=== PATIENT | male | born 1965 | race Caucasian/White ===

== ENCOUNTER 2020-10-14 18:53 | Inpatient (IN) | payer MEDICAID ==
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
[2020-10-14] MEDS ORDERED: SODIUM CHLORIDE 0.9% 1,000 ML IV STA ×2 (19:39→19:42)
[2020-10-14] MEDS ORDERED: ACETAMINOPHEN 325 MG TABLET PO STA (19:40)
[2020-10-14] MEDS ORDERED: KETOROLAC 15 MG/ML VIAL IVP STA (19:40)
[2020-10-14] MEDS ORDERED: HYDROmorphone 1 MG/ML CARPUJECT IVP STA (19:40)
[2020-10-14 19:51] LABS: BASOPHILS # (AUTO) 0.1 10^3/uL (0.0-0.1); BASOPHILS % (AUTO) 0.5 %; EOSINOPHILS % (AUTO) 0.2 %; HCT - HEMATOCRIT 40.6 % (42.0-52.0); HGB - HEMOGLOBIN 13.9 g/dL (14.0-18.0); LYMPHOCYTES % (AUTO) 10.6 %; MEAN CORPUSCULAR HEMOGLOBIN 31.7 pg (27.0-31.0); MEAN CORPUSCULAR HGB CONC 34.2 g/dL (32.0-36.0); MEAN CORPUSCULAR VOLUME 92.5 fL (80.0-94.0); MEAN PLATELET VOLUME 8.9 fL (7.4-11.4); MONOCYTES % (AUTO) 10.8 %; NEUTROPHILS # (AUTO) 14.1 10^3/uL (1.5-6.6); NEUTROPHILS % (AUTO) 76.2 %; PLT - PLATELET COUNT 310 10^3/uL (130-450); RED BLOOD COUNT 4.39 10^6/uL (4.70-6.10); RED CELL DISTRIBUTION WIDTH 11.8 % (12.0-15.0); WHITE BLOOD COUNT 18.5 x10^3/uL (4.8-10.8)
[2020-10-14 20:02] LABS: ALBUMIN 3.5 g/dL (3.2-5.5); ALBUMIN/GLOBULIN RATIO 0.9 (1.0-2.2); BILIRUBIN,TOTAL 0.6 mg/dL (0.2-1.0); CALCIUM 8.8 mg/dL (8.5-10.3); POTASSIUM 4.9 mmol/L (3.5-5.0); TOTAL PROTEIN 7.5 g/dL (6.7-8.2)
[2020-10-14] MEDS ORDERED: cefTRIAXone 1 GM VIAL IVP STA (20:37)
[2020-10-14] MEDS ORDERED: VANCOMYCIN INJ 1 GM in SODIUM CHLORIDE 0.9% 500 ML IV STA (20:37)
[2020-10-14 20:40] LABS: B. PARAPERTUSSIS- RESP PCR PAN NOT DETECTED; B. PERTUSSIS- RESP PCR PANEL NOT DETECTED; C. PNEUMONIAE- RESP PCR PANEL NOT DETECTED; CORONAVIRUS 229E-RESP PCR NOT DETECTED; CORONAVIRUS HKU1-RESP PCR NOT DETECTED; CORONAVIRUS NL63-RESP PCR NOT DETECTED; CORONAVIRUS OC43-RESP PCR NOT DETECTED; HUMAN METAPNEUMOVIRUS NOT DETECTED; INFLUENZA A- RESP PCR PANEL NOT DETECTED; INFLUENZA B - RESP PCR PANEL NOT DETECTED; M. PNEUMONIAE- RESP PCR PANEL NOT DETECTED; PARAINFLUENZA VIRUS 1 NOT DETECTED; PARAINFLUENZA VIRUS 2 NOT DETECTED; PARAINFLUENZA VIRUS 3 NOT DETECTED; PARAINFLUENZA VIRUS 4 NOT DETECTED; RHINOVIRUS/ENTEROVIRUS NOT DETECTED; RSV- RESP PCR PANEL NOT DETECTED; SARS-CoV-2 -RESP PCR PANEL NOT DETECTED
[2020-10-14] MEDS ORDERED: VANCOMYCIN 1 GM VIAL ONE (20:44)
[2020-10-14] MEDS ORDERED: IOPAMIDOL-300 100 ML VIAL ONE (20:57)
[2020-10-14] MEDS ORDERED: IOPAMIDOL-300 100 ML VIAL IVP ONE (21:42)
--- NOTE | 2020-10-14 21:50 | XRAY Report ---
PROCEDURE: Chest 1 View X-Ray INDICATIONS: chest pain TECHNIQUE: One view of the chest was acquired. COMPARISON: None FINDINGS: Surgical changes and devices: None. Lungs and pleura: No pleural effusions or pneumothorax. Lungs are clear. Mediastinum: Mediastinal contours appear normal. Heart size is normal. Bones and chest wall: No suspicious bony lesions. Overlying soft tissues appear unremarkable. IMPRESSION: No acute cardiopulmonary abnormality Findings concur with preliminary report. Reviewed by: Jack Turcios on 10/14/2020 9:49 PM PDT Approved by: Jack Turcios on 10/14/2020 9:49 PM PDT Station ID: [id number]
[2020-10-14] MEDS ORDERED: VANCOMYCIN INJ 1 GM in SODIUM CHLORIDE 0.9% 250 ML IV SCH (23:00)
[2020-10-14] MEDS ORDERED: ONDANSETRON 4 MG/2 ML VIAL IVP PRN (23:16)
[2020-10-14] MEDS ORDERED: SODIUM CHLORIDE FLUSH 0.9% 10 ML SYRINGE IVP PRN (23:16)
[2020-10-14] MEDS ORDERED: ONDANSETRON ODT 4 MG TABLET TL PRN (23:16)
[2020-10-14] MEDS ORDERED: HYDROmorphone 0.5 MG/0.5 ML SYRINGE IVP PRN (23:16)
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
[2020-10-14] MEDS ORDERED: SODIUM CHLORIDE 0.9% 1,000 ML IV SCH (23:45)
[2020-10-15] MEDS: ACETAMINOPHEN 325 MG TABLET PO PRN ×5 (00:32→23:59)
[2020-10-15] MEDS: oxyCODONE 5 MG TABLET PO PRN ×5 (00:32→23:54)
[2020-10-15] MEDS: AMPICILLIN/SULBACTAM 3 GM in SODIUM CHLORIDE 0.9% MINIBAG 100 ML IV SCH ×5 (00:33→23:40)
[2020-10-15] MEDS: SODIUM CHLORIDE FLUSH 0.9% 10 ML SYRINGE IVP SCH ×4 (00:34→23:40)
[2020-10-15 05:13] LABS: BASOPHILS % (AUTO) 0.5 %; EOSINOPHILS % (AUTO) 1.1 %; HCT - HEMATOCRIT 39.2 % (42.0-52.0); HGB - HEMOGLOBIN 13.5 g/dL (14.0-18.0); LYMPHOCYTES % (AUTO) 12.4 %; MEAN CORPUSCULAR HEMOGLOBIN 32.4 pg (27.0-31.0); MEAN CORPUSCULAR HGB CONC 34.4 g/dL (32.0-36.0); MEAN PLATELET VOLUME 9.1 fL (7.4-11.4); MONOCYTES % (AUTO) 10.6 %; NEUTROPHILS % (AUTO) 73.9 %; PLT - PLATELET COUNT 287 10^3/uL (130-450); RED BLOOD COUNT 4.17 10^6/uL (4.70-6.10); RED CELL DISTRIBUTION WIDTH 11.9 % (12.0-15.0); WHITE BLOOD COUNT 14.3 x10^3/uL (4.8-10.8)
[2020-10-15 05:16] LABS: ABNORMAL LYMPHS % (MANUAL) 0 %
[2020-10-15 05:31] LABS: BAND NEUTROPHILS % (MANUAL) 3 %; DIFFERENTIAL COMMENT MANUAL DIFFERENTIAL; EOSINOPHILS # (MANUAL) 0.7 10^3/uL (0-0.7); LYMPHOCYTES # (MANUAL) 0.9 10^3/uL (1.5-3.5); LYMPHOCYTES % (MANUAL) 6 %; MONOCYTES # (MANUAL) 1.6 10^3/uL (0.0-1.0); NEUTROPHILS # (MANUAL) 11.2 10^3/uL (1.5-6.6); PLATELET ESTIMATE, MANUAL NORMAL (130-450,000) (NORMAL); PLATELET MORPHOLOGY NORMAL APPEARANCE (NORMAL); RBC MORPHOLOGY (MULTIPLE) NORMAL APPEARANCE (NORMAL); WBC MORPHOLOGY (MULTIPLE) NORMAL APPEARANCE (NORMAL)
[2020-10-15 05:35] LABS: CALCIUM 8.5 mg/dL (8.5-10.3); CREATININE 0.9 mg/dL (0.6-1.2); CRP - C-REACTIVE PROTEIN 10.9 mg/dL (0-1.0); POTASSIUM 3.9 mmol/L (3.5-5.0)
[2020-10-15] MEDS: LEVOTHYROXINE 25 MCG TABLET PO SCH (07:44)
[2020-10-15] MEDS ORDERED: IOPAMIDOL-300 100 ML VIAL ONE (08:27)
[2020-10-15] MEDS: ENOXAPARIN 40 MG/0.4 ML SYRINGE SUBQ SCH (08:32)
--- NOTE | 2020-10-15 08:46 | CT Report ---
PROCEDURE: HEAD W INDICATIONS: Scalp wound, drainage, fever CONTRAST: IV CONTRAST: Isovue 300 ml: 100 PO CONTRAST: *NO PO CONTRAST TECHNIQUE: 4.5 mm thick angled axial sections acquired from the foramen magnum to the vertex after the administr ation of intravenous contrast. For radiation dose reduction, the following was used: automated expo sure control, adjustment of mA and/or kV according to patient size. COMPARISON: None FINDINGS: Image quality: Excellent. CSF Spaces: Basal cisterns are patent. No extra-axial fluid collections. Ventricles are normal in size and shape. Brain: No acute intracranial hemorrhage. Butler-white matter differentiation is maintained. No mass eff ect or midline shift. No abnormal intracranial enhancement. Skull and face: There is a subgaleal fluid and gas collection at the vertex just right of midline wit h associated skin clau. The collection measures approximately 1.5 cm in maximum thickness. Sinuses: Visualized sinuses and mastoids are clear. IMPRESSION: No acute intracranial abnormality or abnormal intracranial enhancement. Subgaleal fluid and gas collection near the vertex just right of midline posteriorly. This could repr esent liquefied hematoma or seroma. The collection is not organized or peripherally rim enhancing to suggest the presence of an abscess, although the collection could still be infected. Reviewed by: Berry Paul MD on 10/15/2020 8:45 AM PDT Approved by: Berry Paul MD on 10/15/2020 8:45 AM PDT Station ID: [id number]
--- NOTE | 2020-10-15 08:50 | CT Report ---
PROCEDURE: SOFT TISSUE NECK W INDICATIONS: scalp wound, fever, neck swelling CONTRAST: IV CONTRAST: Isovue 300 ml: 100 PO CONTRAST: *NO PO CONTRAST TECHNIQUE: After the administration of intravenous contrast, 3.0 mm axial sections acquired from the sella to th e aortic arch. Additional oblique axial 3.0 mm sections acquired through the pharynx. 3 mm thick co kishor reformats were generated. For radiation dose reduction, the following was used: automated exp osure control, adjustment of mA and/or kV according to patient size. COMPARISON: None. FINDINGS: These images demonstrate skin thickening and subcutaneous fat stranding in the left suprahyoid and in frahyoid neck. There is thickening of the left platysma indicative of myositis. No associated soft ti ssue fluid collection. Prominent bilateral palatine tonsils and adenoids. No tonsillar or peritonsillar abscess. No threshol d enlarged cervical or supraclavicular lymph node, although there is some mild reactive right cervica l lymphadenopathy. Unremarkable parotid, submandibular, and thyroid glands. Vascular structures of the neck enhance without obvious occlusion or flow limiting stenosis. No acute or suspicious osseous lesion. Degenerative changes in the cervical spine. Reversal of the ce rvical lordosis is likely positional. Included portions of the lung apices are clear. IMPRESSION: Cellulitis in the left suprahyoid and infrahyoid neck with associated left platysma myositis. Enlarged bilateral tonsils and adenoids potentially representing tonsillitis. No peritonsillar or ton sillar abscess. No soft tissue abscess. Reactive bilateral cervical lymphadenopathy, left greater than right. No significant change from pulmonary report. Reviewed by: Berry Paul MD on 10/15/2020 8:48 AM PDT Approved by: Berry Paul MD on 10/15/2020 8:48 AM PDT Station ID: [id number]
[2020-10-15] MEDS ORDERED: HYDROmorphone 1 MG/ML CARPUJECT IVP PRN (09:08)
--- NOTE | 2020-10-15 09:28 | PHARMACY PROGRESS NOTE ---
- Best Possible Medication History Admit Date and Time: 10/14/20 8423 Processed by: Nursing Medication History completed: Yes Patient Interview: Completed (MED REC COMPLETED BY NURSING.) As the person ultimately responsible for medication therapy, providers are able to order a medication from an existing home medication list in [facility] via the "Reconcile Routine" prior to Confirmation of that medication by client support analyst. Such practice is discouraged except when the physician, in their clinical judgment, deems that a medical need exists for a medication without regard to previous use.
[2020-10-15] MEDS ORDERED: LORazepam 2 MG/ML VIAL IVP STA (10:27)
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
[2020-10-15] MEDS: VANCOMYCIN INJ 1 GM, VANCOMYCIN INJ 500 MG in SODIUM CHLORIDE 0.9% 500 ML IV SCH (12:35)
--- NOTE | 2020-10-15 15:45 | PROVIDER PROGRESS NOTE ---
Subjective - Prog Note Date Prog Note Date: 10/15/20 Prog Note Time: 07:30 - Subjective Subjective: Patient was sleepy, lethargic. Head back, open mouth breathing when I woke him up. His scalp was encased in a dressing. Current Medications - Current Medications Current Medications: Active Medications Acetaminophen (Acetaminophen 325 Mg Tablet) 650 mg PO Q4HR PRN PRN Reason: Pain 1 to 4 Last Admin: 10/15/20 14:07 Dose: 650 mg Documented by: Enoxaparin Sodium (Enoxaparin 40 Mg/0.4 Ml Syringe) 40 mg SUBQ DAILY [facility] Last Admin: 10/15/20 08:32 Dose: 40 mg Documented by: Hydromorphone HCl (Hydromorphone 1 Mg/Ml Carpuject) 1 mg IVP Q2HR PRN PRN Reason: Pain 8 to 10 Ampicillin Sodium/Sulbactam (Sodium 3 gm/ Sodium Chloride) 100 mls @ 200 mls/hr IV Q6HR [facility] Last Infusion: 10/15/20 12:32 Dose: Infused Documented by: Vancomycin HCl 1 gm/Vancomycin HCl 500 mg/ Sodium Chloride 500 mls @ 250 mls/hr IV Q12H [facility] Last Infusion: 10/15/20 14:43 Dose: Infused Documented by: Levothyroxine Sodium (Levothyroxine 25 Mcg Tablet) 50 mcg PO QDAC [facility] Last Admin: 10/15/20 07:44 Dose: 50 mcg Documented by: Ondansetron HCl (Ondansetron Odt 4 Mg Tablet) 4 mg TL Q6HR PRN PRN Reason: Nausea / Vomiting Ondansetron HCl (Ondansetron 4 Mg/2 Ml Vial) 4 mg IVP Q6HR PRN PRN Reason: Nausea / Vomiting Oxycodone HCl (Oxycodone 5 Mg Tablet) 5 mg PO Q4HR PRN PRN Reason: Pain 5 to 7 Last Admin: 10/15/20 14:07 Dose: 5 mg Documented by: Sodium Chloride (Sodium Chloride Flush 0.9% 10 Ml Syringe) 10 ml IVP PRN PRN PRN Reason: NEEDED PER PROVIDER ORDERS Last Admin: 10/15/20 10:47 Dose: 10 ml Documented by: Sodium Chloride (Sodium Chloride Flush 0.9% 10 Ml Syringe) 10 ml IVP 0100,0900,1700 [facility] Last Admin: 10/15/20 08:33 Dose: 10 ml Documented by: No Known Home Medications 10/14/20 Objective - Vital Signs/Intake & Output Reviewed Vital Signs: Yes Vital Signs: Vital Signs x48h Temp Pulse Resp BP BP Pulse Ox 10/15/20 13:54 38.6 C H 86 20 129/57 L 100 10/15/20 07:56 37.2 C 90 20 135/75 H 97 Intake & Output: Intake & Output 10/12/20 10/13/20 10/14/20 10/15/20 23:59 23:59 23:59 23:59 Intake Total 2500 4010 Output Total 1400 Balance 2500 2610 - Objective General Appearance: positive: No acute distress, Lethargic, Other (Snoring, sleep, open mouth breather. No tachypnea. When I wake him up he says that his scalp just hurts.) Eyes Bilateral: positive: PERRL, EOMI ENT: positive: Dry mucous membranes Neck: positive: No JVD, Lymphadenopathy (R), Lymphadenopathy (L), Stiff neck (Mouth breathing it hurts to turn his head to the right and left. Both platysma and paracervical neck muscles ache he tells me. It is not the worst headache he is ever had.) Respiratory: positive: No respiratory distress. negative: Wheezes, Rales Cardiovascular: positive: Regular rate & rhythm, No murmur. negative: Gallop/S4, Friction rub Abdomen: positive: Non-tender, No organomegaly, Nml bowel sounds, No distention Skin: positive: Warm, Diaphoresis Extremities: positive: Full ROM, No pedal edema Neurologic/Psychiatric: positive: Oriented x3, CN's nml (2-12), Motor nml - Lab Results Fish Bones: 10/15/20 04:54 10/15/20 04:54 Other Labs: Lab Results x24hrs 10/15/20 10/15/20 10/15/20 Range/Units 04:54 04:54 04:54 WBC (4.8-10.8) x10^3/uL RBC (4.70-6.10) 10^6/uL Hgb (14.0-18.0) g/dL Hct (42.0-52.0) % MCV (80.0-94.0) fL MCH (27.0-31.0) pg MCHC (32.0-36.0) g/dL RDW (12.0-15.0) % Plt Count (130-450) 10^3/uL MPV (7.4-11.4) fL Neut # (Auto) (1.5-6.6) 10^3/uL Lymph # (Auto) (1.5-3.5) 10^3/uL [place] # (Auto) (0.0-1.0) 10^3/uL Eos # (Auto) (0.0-0.7) 10^3/uL Baso # (Auto) (0.0-0.1) 10^3/uL Absolute Nucleated RBC x10^3/uL Total Counted Band Neuts % (Manual) (0 - 10) % Abnorm Lymph % (Manual) % Nucleated RBC % /100WBC Neutrophils # (Manual) (1.5-6.6) 10^3/uL Lymphocytes # (Manual) (1.5-3.5) 10^3/uL Monocytes # (Manual) (0.0-1.0) 10^3/uL Eosinophils # (Manual) (0-0.7) 10^3/uL Basophils # (Manual) (0-0.1) 10^3/uL Differential Comment WBC Morphology (NORMAL) Platelet Estimate (NORMAL) Platelet Morphology (NORMAL) RBC Morph Micro Appear (NORMAL) Sodium 137 (135-145) mmol/L Potassium 3.9 (3.5-5.0) mmol/L Chloride 100 L (101-111) mmol/L Carbon Dioxide 28 (21-32) mmol/L Anion Gap 9.0 (6-13) BUN 15 (6-20) mg/dL Creatinine 0.9 (0.6-1.2) mg/dL Estimated GFR (MDRD) 88 L (>89) Glucose 119 H (70-100) mg/dL Lactic Acid (0.5-2.2) mmol/L Calcium 8.5 (8.5-10.3) mg/dL Magnesium 2.0 (1.7-2.8) mg/dL Total Bilirubin (0.2-1.0) mg/dL AST (10-42) IU/L ALT (10-60) IU/L Alkaline Phosphatase (42-121) IU/L C-Reactive Protein 10.9 H (0-1.0) mg/dL Total Protein (6.7-8.2) g/dL Albumin (3.2-5.5) g/dL Globulin (2.1-4.2) g/dL Albumin/Globulin Ratio (1.0-2.2) Lipase (22-51) U/L TSH 8.06 H (0.34-5.60) uIU/mL Free T4 1.08 (0.58-1.64) ng/dL Nasal Adenovirus (PCR) Nasal B. parapertussis DNA (PCR) Nasal Coronavir 229E PCR Nasal Coronavir HKU1 PCR Nasal Coronavir NL63 PCR Nasal Coronavir OC43 PCR Nasal Enterovir/Rhinovir PCR Nasal Influenza B PCR Nasal Influenza A PCR Nasal Parainfluen 1 PCR Nasal Parainfluen 2 PCR Nasal Parainfluen 3 PCR Nasal Parainfluen 4 PCR Nasal RSV (PCR) Nasal B.pertussis DNA PCR Nasal C.pneumoniae (PCR) Jj Human Metapneumo PCR Nasal M.pneumoniae (PCR) Nasal SARS-CoV-2 (PCR) 10/15/20 10/14/20 10/14/20 Range/Units 04:54 19:34 19:30 WBC 14.3 H (4.8-10.8) x10^3/uL RBC 4.17 L (4.70-6.10) 10^6/uL Hgb 13.5 L (14.0-18.0) g/dL Hct 39.2 L (42.0-52.0) % MCV 94.0 (80.0-94.0) fL MCH 32.4 H (27.0-31.0) pg MCHC 34.4 (32.0-36.0) g/dL RDW 11.9 L (12.0-15.0) % Plt Count 287 (130-450) 10^3/uL MPV 9.1 (7.4-11.4) fL Neut # (Auto) Not Reportable (1.5-6.6) 10^3/uL Lymph # (Auto) Not Reportable (1.5-3.5) 10^3/uL [place] # (Auto) Not Reportable (0.0-1.0) 10^3/uL Eos # (Auto) Not Reportable (0.0-0.7) 10^3/uL Baso # (Auto) Not Reportable (0.0-0.1) 10^3/uL Absolute Nucleated RBC Not Reportable x10^3/uL Total Counted 100 Band Neuts % (Manual) 3 (0 - 10) % Abnorm Lymph % (Manual) 0 % Nucleated RBC % Not Reportable /100WBC Neutrophils # (Manual) 11.2 H (1.5-6.6) 10^3/uL Lymphocytes # (Manual) 0.9 L (1.5-3.5) 10^3/uL Monocytes # (Manual) 1.6 H (0.0-1.0) 10^3/uL Eosinophils # (Manual) 0.7 (0-0.7) 10^3/uL Basophils # (Manual) 0.0 (0-0.1) 10^3/uL Differential Comment MANUAL DIFFERENTIAL WBC Morphology NORMAL APPEARANCE (NORMAL) Platelet Estimate NORMAL (130-450,000) (NORMAL) Platelet Morphology NORMAL APPEARANCE (NORMAL) RBC Morph Micro Appear NORMAL APPEARANCE (NORMAL) Sodium (135-145) mmol/L Potassium (3.5-5.0) mmol/L Chloride (101-111) mmol/L Carbon Dioxide (21-32) mmol/L Anion Gap (6-13) BUN (6-20) mg/dL Creatinine (0.6-1.2) mg/dL Estimated GFR (MDRD) (>89) Glucose (70-100) mg/dL Lactic Acid (0.5-2.2) mmol/L Calcium (8.5-10.3) mg/dL Magnesium (1.7-2.8) mg/dL Total Bilirubin (0.2-1.0) mg/dL AST (10-42) IU/L ALT (10-60) IU/L Alkaline Phosphatase (42-121) IU/L C-Reactive Protein 10.6 H (0-1.0) mg/dL Total Protein (6.7-8.2) g/dL Albumin (3.2-5.5) g/dL Globulin (2.1-4.2) g/dL Albumin/Globulin Ratio (1.0-2.2) Lipase (22-51) U/L TSH (0.34-5.60) uIU/mL Free T4 (0.58-1.64) ng/dL Nasal Adenovirus (PCR) NOT DETECTED Nasal B. parapertussis DNA (PCR) NOT DETECTED Nasal Coronavir 229E PCR NOT DETECTED Nasal Coronavir HKU1 PCR NOT DETECTED Nasal Coronavir NL63 PCR NOT DETECTED Nasal Coronavir OC43 PCR NOT DETECTED Nasal Enterovir/Rhinovir PCR NOT DETECTED Nasal Influenza B PCR NOT DETECTED Nasal Influenza A PCR NOT DETECTED Nasal Parainfluen 1 PCR NOT DETECTED Nasal Parainfluen 2 PCR NOT DETECTED Nasal Parainfluen 3 PCR NOT DETECTED Nasal Parainfluen 4 PCR NOT DETECTED Nasal RSV (PCR) NOT DETECTED Nasal B.pertussis DNA PCR NOT DETECTED Nasal C.pneumoniae (PCR) NOT DETECTED Jj Human Metapneumo PCR NOT DETECTED Nasal M.pneumoniae (PCR) NOT DETECTED Nasal SARS-CoV-2 (PCR) NOT DETECTED 10/14/20 10/14/20 10/14/20 Range/Units 19:30 19:30 19:30 WBC 18.5 H (4.8-10.8) x10^3/uL RBC 4.39 L (4.70-6.10) 10^6/uL Hgb 13.9 L (14.0-18.0) g/dL Hct 40.6 L (42.0-52.0) % MCV 92.5 (80.0-94.0) fL MCH 31.7 H (27.0-31.0) pg MCHC 34.2 (32.0-36.0) g/dL RDW 11.8 L (12.0-15.0) % Plt Count 310 (130-450) 10^3/uL MPV 8.9 (7.4-11.4) fL Neut # (Auto) 14.1 H (1.5-6.6) 10^3/uL Lymph # (Auto) 2.0 (1.5-3.5) 10^3/uL [place] # (Auto) 2.0 H (0.0-1.0) 10^3/uL Eos # (Auto) 0.0 (0.0-0.7) 10^3/uL Baso # (Auto) 0.1 (0.0-0.1) 10^3/uL Absolute Nucleated RBC 0.00 x10^3/uL Total Counted Band Neuts % (Manual) (0 - 10) % Abnorm Lymph % (Manual) % Nucleated RBC % 0.0 /100WBC Neutrophils # (Manual) (1.5-6.6) 10^3/uL Lymphocytes # (Manual) (1.5-3.5) 10^3/uL Monocytes # (Manual) (0.0-1.0) 10^3/uL Eosinophils # (Manual) (0-0.7) 10^3/uL Basophils # (Manual) (0-0.1) 10^3/uL Differential Comment WBC Morphology (NORMAL) Platelet Estimate (NORMAL) Platelet Morphology (NORMAL) RBC Morph Micro Appear (NORMAL) Sodium 129 L (135-145) mmol/L Potassium 4.9 (3.5-5.0) mmol/L Chloride 92 L (101-111) mmol/L Carbon Dioxide 27 (21-32) mmol/L Anion Gap 10.0 (6-13) BUN 16 (6-20) mg/dL Creatinine 1.0 (0.6-1.2) mg/dL Estimated GFR (MDRD) 78 L (>89) Glucose 128 H (70-100) mg/dL Lactic Acid 1.2 (0.5-2.2) mmol/L Calcium 8.8 (8.5-10.3) mg/dL Magnesium (1.7-2.8) mg/dL Total Bilirubin 0.6 (0.2-1.0) mg/dL AST 23 (10-42) IU/L ALT 33 (10-60) IU/L Alkaline Phosphatase 74 (42-121) IU/L C-Reactive Protein (0-1.0) mg/dL Total Protein 7.5 (6.7-8.2) g/dL Albumin 3.5 (3.2-5.5) g/dL Globulin 4.0 (2.1-4.2) g/dL Albumin/Globulin Ratio 0.9 L (1.0-2.2) Lipase 20 L (22-51) U/L TSH (0.34-5.60) uIU/mL Free T4 (0.58-1.64) ng/dL Nasal Adenovirus (PCR) Nasal B. parapertussis DNA (PCR) Nasal Coronavir 229E PCR Nasal Coronavir HKU1 PCR Nasal Coronavir NL63 PCR Nasal Coronavir OC43 PCR Nasal Enterovir/Rhinovir PCR Nasal Influenza B PCR Nasal Influenza A PCR Nasal Parainfluen 1 PCR Nasal Parainfluen 2 PCR Nasal Parainfluen 3 PCR Nasal Parainfluen 4 PCR Nasal RSV (PCR) Nasal B.pertussis DNA PCR Nasal C.pneumoniae (PCR) Jj Human Metapneumo PCR Nasal M.pneumoniae (PCR) Nasal SARS-CoV-2 (PCR) ABX Reporting Has patient been on IV antibiotics over the past 48 hours?: Yes Sepsis Event Note (H) - Evaluation Current Stage of Sepsis: Sepsis Possible source of Sepsis: positive: Skin/soft tissue - Sepsis Criteria Sepsis Criteria: Recorded Temperature greater than 38.3C or Less than 36C, Recorded Heart Rate greater than 90 bpm, WBC count greater than 12,000 or less than 4000 Assessment/Plan - Problem List (1) Sepsis Impression: He presents with a fever, tachycardia, leukocytosis with a left shift. Fortunately he is normotensive with a normal lactic acid. Respiratory PCR panel is unremarkable. Chest x-ray is also unremarkable. He has no urinary symptoms to suggest a urinary infection. On physical examination the source of his sepsis is the scalp cellulitis that extends down into his neck. We are suspicious about the fluid collection underneath the scalp, and the possible myositis on CT of the neck. start him empirically on vancomycin and Unasyn. He is on empiric vancomycin and Unasyn, day #2. White cell count on admission was 18.5 and he is 14.3. Preliminary wound culture is gram-positive cocci in chains. On exam he still quite diaphoretic. A little bit sleepy. Still febrile this morning at 38.1. Tachycardia has improved. Continue to trend white cell count I am asking oral maxillofacial surgery to take a look at this patient and make sure he does not need any draining of fluid or debridement of tissue (2) Wound infection, posttraumatic Conclusion/Plan: The scalp wound does appear infected and this is after the trauma he had about 1 week ago. The wound has purulent drainage with surrounding cellulitis. CT of the head showed a subgaleal fluid and gas collection in the vertex. I suspect that the gas collection is likely due to the trauma and the opening rather than a gas-forming organism. Wound cultures were obtained in the emergency department. Plan: Treatment as above in problem #1 (3) Cellulitis of multiple sites of scalp and neck Conclusion/Plan: He has cellulitis of the scalp as well as in the neck. CT of the neck confirms cellulitis and there was also evidence of mild platysma thickening suggestive of myositis. There was no obvious abscess or fluid collection. Given the potential concern for pyomyositis, I went ahead and consulted oral maxillofacial surgery today. C-reactive protein was 10.6 on admission and 10.9 this morning. (4) Periorbital edema of left eye Conclusion/Plan: He does have periorbital edema of the left eye but there is no evidence of proptosis and he has no pain with movement. There is no obvious erythema although this edema could still be due to cellulitis. At this point time, there is low suspicion for orbital cellulitis. He will be on antibiotics nonetheless given the cellulitis of the scalp and left neck. (5) Hyponatremia, resolved Conclusion/Plan: Suspect is likely hypovolemic hyponatremia. His sodium is decreased at 129. With hydration his sodium has improved to 137. (6) Hypothyroidism Conclusion/Plan: He reports a history of hypothyroidism and that he is supposed to be on levothyroxine 50 mcg but he has not taken this for a few months. TSH is 8.06. We have resumed his 50 mcg. Should get a recheck in 4 weeks.
[2020-10-16] MEDS: VANCOMYCIN INJ 1 GM, VANCOMYCIN INJ 500 MG in SODIUM CHLORIDE 0.9% 500 ML IV SCH ×3 (00:15→23:48)
[2020-10-16] MEDS: SODIUM CHLORIDE FLUSH 0.9% 10 ML SYRINGE IVP SCH ×4 (00:15→23:48)
[2020-10-16 05:26] LABS: BASOPHILS # (AUTO) 0.1 10^3/uL (0.0-0.1); BASOPHILS % (AUTO) 0.7 %; EOSINOPHILS # (AUTO) 0.3 10^3/uL (0.0-0.7); EOSINOPHILS % (AUTO) 2.5 %; HCT - HEMATOCRIT 39.2 % (42.0-52.0); LYMPHOCYTES # (AUTO) 2.1 10^3/uL (1.5-3.5); LYMPHOCYTES % (AUTO) 17.8 %; MEAN CORPUSCULAR HEMOGLOBIN 31.5 pg (27.0-31.0); MEAN CORPUSCULAR HGB CONC 33.2 g/dL (32.0-36.0); MEAN CORPUSCULAR VOLUME 94.9 fL (80.0-94.0); MEAN PLATELET VOLUME 8.9 fL (7.4-11.4); MONOCYTES # (AUTO) 1.2 10^3/uL (0.0-1.0); MONOCYTES % (AUTO) 10.2 %; NEUTROPHILS # (AUTO) 7.7 10^3/uL (1.5-6.6); NEUTROPHILS % (AUTO) 66.4 %; PLT - PLATELET COUNT 295 10^3/uL (130-450); RED BLOOD COUNT 4.13 10^6/uL (4.70-6.10); RED CELL DISTRIBUTION WIDTH 12.1 % (12.0-15.0); WHITE BLOOD COUNT 11.6 x10^3/uL (4.8-10.8)
[2020-10-16 05:46] LABS: CALCIUM 8.8 mg/dL (8.5-10.3); CREATININE 0.8 mg/dL (0.6-1.2); CRP - C-REACTIVE PROTEIN 8.6 mg/dL (0-1.0); POTASSIUM 4.2 mmol/L (3.5-5.0)
[2020-10-16] MEDS: AMPICILLIN/SULBACTAM 3 GM in SODIUM CHLORIDE 0.9% MINIBAG 100 ML IV SCH ×2 (05:58→11:28)
[2020-10-16] MEDS: LEVOTHYROXINE 25 MCG TABLET PO SCH (06:14)
[2020-10-16] MEDS: ACETAMINOPHEN 325 MG TABLET PO PRN ×2 (06:14→11:50)
[2020-10-16] MEDS: ENOXAPARIN 40 MG/0.4 ML SYRINGE SUBQ SCH (09:20)
[2020-10-16] MEDS ORDERED: KETOROLAC 30 MG/ML VIAL IVP PRN (11:40)
--- NOTE | 2020-10-16 11:43 | PROVIDER PROGRESS NOTE ---
Subjective - Prog Note Date Prog Note Date: 10/16/20 Prog Note Time: 11:51 - Subjective Subjective: Feels so much better. The pain that was going down his neck into the platysma on both sides is almost gone. It still comes and goes. The main pain he is feeling is on top of the head where the scalp incision was. It is pounding. He is on Dilaudid and oxycodone but asked that we remove it from the MAR. He had had some spine surgery in the past. 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 He has not had any of it for a while. Probably since 2013. Current Medications - Current Medications Current Medications: Active Medications Acetaminophen (Acetaminophen 325 Mg Tablet) 650 mg PO Q4HR PRN PRN Reason: Pain 1 to 4 Last Admin: 10/16/20 11:50 Dose: 650 mg Documented by: Enoxaparin Sodium (Enoxaparin 40 Mg/0.4 Ml Syringe) 40 mg SUBQ DAILY [facility] Last Admin: 10/16/20 09:20 Dose: 40 mg Documented by: Vancomycin HCl 1 gm/Vancomycin HCl 500 mg/ Sodium Chloride 500 mls @ 250 mls/hr IV Q12H [facility] Last Infusion: 10/16/20 02:15 Dose: Infused Documented by: Ketorolac Tromethamine (Ketorolac 30 Mg/Ml Vial) 30 mg IVP Q6HR PRN PRN Reason: PAIN Stop: 10/21/20 11:39 Last Admin: 10/16/20 11:50 Dose: 30 mg Documented by: Levothyroxine Sodium (Levothyroxine 25 Mcg Tablet) 50 mcg PO QDAC [facility] Last Admin: 10/16/20 06:14 Dose: 50 mcg Documented by: Ondansetron HCl (Ondansetron Odt 4 Mg Tablet) 4 mg TL Q6HR PRN PRN Reason: Nausea / Vomiting Ondansetron HCl (Ondansetron 4 Mg/2 Ml Vial) 4 mg IVP Q6HR PRN PRN Reason: Nausea / Vomiting Sodium Chloride (Sodium Chloride Flush 0.9% 10 Ml Syringe) 10 ml IVP PRN PRN PRN Reason: NEEDED PER PROVIDER ORDERS Last Admin: 10/15/20 10:47 Dose: 10 ml Documented by: Sodium Chloride (Sodium Chloride Flush 0.9% 10 Ml Syringe) 10 ml IVP 0100,0900,1700 [facility] Last Admin: 10/16/20 11:29 Dose: 10 ml Documented by: No Known Home Medications 10/14/20 Objective - Vital Signs/Intake & Output Reviewed Vital Signs: Yes Vital Signs: Vital Signs x48h Temp Pulse Resp BP Pulse Ox 10/16/20 11:32 36.6 C 76 18 134/79 H 100 10/16/20 08:30 36.5 C 70 18 132/58 H 100 10/16/20 05:00 37.3 C 73 16 134/81 H 100 Intake & Output: Intake & Output 10/13/20 10/14/20 10/15/20 10/16/20 23:59 23:59 23:59 23:59 Intake Total 2500 5590 2780 Output Total 2700 2700 Balance 2500 2890 80 - Objective General Appearance: positive: No acute distress, Alert, Other (Yesterday he was still mainly asleep, and today he is cheerful, alert. Only complaint is the throbbing headache.) Eyes Bilateral: positive: PERRL, EOMI ENT: positive: No signs of dehydration Neck: positive: No JVD, Trachea midline, Lymphadenopathy (L) (Still has some slight lymphadenopathy on the left in comparison to yesterday. The right lymphadenopathy is almost disappeared.). negative: Stiff neck Respiratory: positive: No respiratory distress. negative: Wheezes, Rales, Rhonchi Cardiovascular: positive: Regular rate & rhythm. negative: Gallop/S4, Friction rub Abdomen: positive: Non-tender, No organomegaly, Nml bowel sounds, No distention Skin: positive: Warm, Dry, Other (Diaphoresis from yesterday has resolved. Periorbital swelling on the left side is gone. The edema that was going down his face past his jawline has resolved as well.) Extremities: positive: Non-tender, Full ROM, Nml appearance, No pedal edema Neurologic/Psychiatric: positive: Oriented x3, CN's nml (2-12), Motor nml - Lab Results Fish Bones: 10/16/20 05:05 10/16/20 05:05 Other Labs: Lab Results x24hrs 10/16/20 10/16/20 Range/Units 05:05 05:05 WBC 11.6 H (4.8-10.8) x10^3/uL RBC 4.13 L (4.70-6.10) 10^6/uL Hgb 13.0 L (14.0-18.0) g/dL Hct 39.2 L (42.0-52.0) % MCV 94.9 H (80.0-94.0) fL MCH 31.5 H (27.0-31.0) pg MCHC 33.2 (32.0-36.0) g/dL RDW 12.1 (12.0-15.0) % Plt Count 295 (130-450) 10^3/uL MPV 8.9 (7.4-11.4) fL Neut # (Auto) 7.7 H (1.5-6.6) 10^3/uL Lymph # (Auto) 2.1 (1.5-3.5) 10^3/uL [place] # (Auto) 1.2 H (0.0-1.0) 10^3/uL Eos # (Auto) 0.3 (0.0-0.7) 10^3/uL Baso # (Auto) 0.1 (0.0-0.1) 10^3/uL Absolute Nucleated RBC 0.00 x10^3/uL Nucleated RBC % 0.0 /100WBC Sodium 141 (135-145) mmol/L Potassium 4.2 (3.5-5.0) mmol/L Chloride 103 (101-111) mmol/L Carbon Dioxide 27 (21-32) mmol/L Anion Gap 11.0 (6-13) BUN 12 (6-20) mg/dL Creatinine 0.8 (0.6-1.2) mg/dL Estimated GFR (MDRD) 101 (>89) Glucose 113 H (70-100) mg/dL Calcium 8.8 (8.5-10.3) mg/dL Magnesium 2.0 (1.7-2.8) mg/dL C-Reactive Protein 8.6 H (0-1.0) mg/dL ABX Reporting Has patient been on IV antibiotics over the past 48 hours?: Yes Sepsis Event Note (H) - Evaluation Current Stage of Sepsis: Sepsis Possible source of Sepsis: positive: Skin/soft tissue - Sepsis Criteria Sepsis Criteria: Recorded Temperature greater than 38.3C or Less than 36C, Recorded Heart Rate greater than 90 bpm, WBC count greater than 12,000 or less than 4000 Assessment/Plan - Problem List (1) Sepsis Impression: Resolved. He presented with a fever, tachycardia, leukocytosis with a left shift. Fortunately he was normotensive with a normal lactic acid. Respiratory PCR panel was unremarkable. Chest x-ray was also unremarkable. He had no urinary symptoms to suggest a urinary infection. On physical examination the source of his sepsis was the scalp cellulitis that extends down into his neck. We were suspicious about the fluid collection underneath the scalp, and the possible myositis on CT of the neck. started him empirically on vancomycin and Unasyn. He is on empiric vancomycin and Unasyn, day #3. White cell count on admission was 18.5 >> 14.3 >> 11.6 today. Blood cultures have no growth after 1 day. I consulted with oral maxillofacial surgery to address the wound. Suture/clau were removed. The pus accumulation was drained. Wound culture is staph aureus and beta-hemolytic group strep A. Sensitivities on the Staph are pending. His last temperature spike was at 4:00 in the afternoon October 15. No fever since then. Diaphoresis has resolved. Much more clear headed and responsive. On examination the swelling that was in the periorbital area down to his jawline and neck has completely resolved. Continue to trend white cell count. Once I get the sensitivities to the staph aureus I can switch him to Rocephin or keep him on vancomycin. We will stop the Unasyn now. (2) Wound infection, posttraumatic, improving Conclusion/Plan: The scalp wound appeared infected on admission. There was purulent drainage with surrounding cellulitis. CT of the head showed subgaleal fluid and gas collection in the vertex that we suspected the air to be from trauma and the opening rather than gas-forming organisms. However the cellulitis did wrap around forward in the scalp toward his face and involve the lateral periorbital area down his face into his neck. All of the face and neck swelling has resolved and the only area of induration now is on his scalp. Treatment as above in problem #1 (3) Cellulitis of multiple sites of scalp and neck, improving Conclusion/Plan: He has cellulitis of the scalp as well as in the neck. CT of the neck confirms cellulitis and there was also evidence of mild platysma thickening suggestive of myositis. There was no obvious abscess or fluid collection. Given the potential concern for pyomyositis, I went ahead and consulted oral maxillofacial surgery 10/15 and he was seen. I appreciate the consult and the patient has improved quite a bit. C-reactive protein was 10.6 >> 10.9>>8.6 this morning. (4) Periorbital edema of left eye resolved Conclusion/Plan: He did have periorbital edema of the left eye but there was no evidence of proptosis and he had no pain with movement. There was no obvious erythema although this edema could still be due to cellulitis. There was low suspicion for orbital cellulitis. He will be on antibiotics nonetheless given the cellulitis of the scalp and left neck. (5) Hyponatremia, resolved Conclusion/Plan: Suspect is likely hypovolemic hyponatremia. His sodium is decreased at 129. With hydration his sodium has improved to 137. (6) Hypothyroidism Conclusion/Plan: He reports a history of hypothyroidism and that he is supposed to be on levothyroxine 50 mcg but he has not taken this for a few months. TSH is 8.06. We have resumed his 50 mcg. Should get a recheck in 4 weeks. (7) pain. I really appreciated his sharing of complicated opioid history use. I will stop the Dilaudid and oxycodone and switch him to Toradol.
[2020-10-16] MEDS: KETOROLAC 30 MG/ML VIAL IVP PRN (21:46)
[2020-10-17] MEDS: ACETAMINOPHEN 325 MG TABLET PO PRN ×2 (00:34→09:26)
[2020-10-17] MEDS: LEVOTHYROXINE 25 MCG TABLET PO SCH (05:59)
[2020-10-17] MEDS: KETOROLAC 30 MG/ML VIAL IVP PRN (06:00)
[2020-10-17] MEDS: SODIUM CHLORIDE FLUSH 0.9% 10 ML SYRINGE IVP SCH ×2 (06:00→09:26)
[2020-10-17 07:47] LABS: BASOPHILS # (AUTO) 0.1 10^3/uL (0.0-0.1); BASOPHILS % (AUTO) 0.8 %; EOSINOPHILS # (AUTO) 0.4 10^3/uL (0.0-0.7); EOSINOPHILS % (AUTO) 4.2 %; HCT - HEMATOCRIT 38.5 % (42.0-52.0); HGB - HEMOGLOBIN 13.3 g/dL (14.0-18.0); LYMPHOCYTES # (AUTO) 1.7 10^3/uL (1.5-3.5); LYMPHOCYTES % (AUTO) 17.7 %; MEAN CORPUSCULAR HGB CONC 34.5 g/dL (32.0-36.0); MEAN CORPUSCULAR VOLUME 92.5 fL (80.0-94.0); MEAN PLATELET VOLUME 8.7 fL (7.4-11.4); MONOCYTES # (AUTO) 0.9 10^3/uL (0.0-1.0); MONOCYTES % (AUTO) 9.3 %; NEUTROPHILS # (AUTO) 6.4 10^3/uL (1.5-6.6); NEUTROPHILS % (AUTO) 64.8 %; PLT - PLATELET COUNT 366 10^3/uL (130-450); RED BLOOD COUNT 4.16 10^6/uL (4.70-6.10); RED CELL DISTRIBUTION WIDTH 11.9 % (12.0-15.0); WHITE BLOOD COUNT 9.8 x10^3/uL (4.8-10.8)
[2020-10-17 07:54] LABS: CREATININE 0.7 mg/dL (0.6-1.2); POTASSIUM 4.2 mmol/L (3.5-5.0)
[2020-10-17] MEDS ORDERED: levoFLOXacin 250 MG TABLET PO SCH (09:00)
[2020-10-17] MEDS: ENOXAPARIN 40 MG/0.4 ML SYRINGE SUBQ SCH (09:26)
--- NOTE | 2020-10-17 10:43 | Discharge Plan ---
Discharge Plan Problem Reviewed?: Yes Disposition: Home, Self Care Condition: Good Prescriptions: cephALEXin [Keflex] 500 mg PO Q6HR #16 cap Levothyroxine [Synthroid] 50 mcg PO QDAC #60 tablet Diet: Regular Activity Restrictions: Activity as Tolerated Shower Restrictions: No Driving Restrictions: No Instruction Topics: Cephalexin tablets or capsules, [facility] Health Concerns: To our emergency room with a painful scalp wound. You had already fallen and had been treated at another hospital for a laceration, suture, and the laceration was now infected. You actually had sepsis because of this. The infection was wrapping down your head to the front of your face and down your neck. We had an oral maxillofacial surgeon see you and he took out all the sutures/clau. Cleaned out the wound. We put you on strong IV antibiotics and you responded well. The wound is growing out staph and strep. We have figured out that the antibiotic we could use for both is Ancef. You'll take it 4 times a day for 4 days. Plan of Treatment: You can take a shower with the scalp wound. Do not soak it. Just clean it and take it out of the water immediately. Dry it very carefully. Even if you have to use a hair blender to dry the hair and skin around it afterwards would be good. Please see your primary care provider in follow-up in the next few days. If you do not have a primary care provider you can see Dr. Nicholas tomorrow in his office. If you have recurrence of drainage, redness, heat, and swelling please call Dr. Nicholas or come to the emergency room. Care Goals: Goal is to have this wound completely healed within the next few days. Assessment: And his care goals, and promises to follow through. No Smoking: If you smoke, Please STOP! Call for help. Follow-up with: ROSE MARIE NICHOLAS [Physician No Access] -
[2020-10-17] MEDS ORDERED: cephALEXin 250 MG CAPSULE PO SCH (12:00)
[2020-10-17 12:27] VITALS: BP 148/83
--- NOTE | 2020-10-17 12:33 | DISCHARGE SUMMARY ---
"Discharge Summary Admit Date: 10/14/20 Discharge Date: 10/17/20 Discharging Provider: Chloe Landeros MD Primary Care Provider: no one right now Code Status: Attempt Resuscitation Condition at Discharge: Good Discharge Disposition: 01 Home, Self Care - DIAGNOSES Discharge Diagnoses with Status of Each Condition: 1. Sepsis, resolved 2. Posttraumatic wound infection 3. Cellulitis of multiple sites of scalp and neck 4. Periorbital edema of left eye 5. Hyponatremia 6. Hypothyroidism - HPI History of Present Illness: This is a 55-year-old male with no significant past medical history who presents today complaining of a fever. He states that about 6 days ago while in [place], he fell off of a segue and hit the back of his head. He was evaluated at [facility] and ended up with 7 clau to the wound. He was told that a CT scan of his head was unremarkable then. He did admit to loss of consciousness with the fall. He states today after being discharged from the emergency department, he started to develop fevers. He reports his have occurred on a daily basis and today his temperature was as high as 103.1F. He reports occasional chills. He just feels fatigued and malaise. He also noted that his left eye was swollen today although he does not feel there is any change in his vision. He does not have any pain with eye movement. He does complain of bilateral lymph node swelling in his neck and pain in both sides of his neck. He does have a little pain with swallowing but no difficulty swallowing. He has no chest pain, dyspnea. He does report a mild cough. He has no nausea or vomiting and denies abdominal pain. Reports no dysuria, urgency, frequency. He does complain of back pain but states is chronic for him and was made a little worse after his fall. He states he had imaging of his pelvis at [facility] which was unremarkable. He denies IV drug use or alcohol use. He denies a history of diabetes. Here in our emergency department, he was noted to be febrile with a temperature of 39.2 C. His heart is in the 90s. He was normotensive. He was not tachypneic and was saturating well on room air. Labs were significant for a white count of 18.5 the left shift. His sodium was 129. Lactic acid was normal. Respiratory PCR panel was unremarkable. Chest x-ray revealed no acute abnormalities. Preliminary CT of the head with contrast showed subgaleal fluid with gas collection at the vertex which could represent liquefied hematoma or seroma, potentially infected. CT of the neck with IV contrast showed left lateral neck cellulitis and mild thickening of the left platysma muscle consistent with myositis. Prominent bilateral cervical and left submandibular lymph nodes. No abscess. He was given vancomycin and ceftriaxone in the emergency department. Given the above findings, medicine was consulted for admission. - Past Medical History Cardiovascular: reports: None Respiratory: reports: None Neuro: reports: None Endocrine/Autoimmune: reports: HyPOthyroidism MRSA Hx?: No - Past Surgical History Cardiovascular: reports: Vascular surgery HEENT: reports: Tracheostomy - CONSULTS | PROCEDURES Procedures: 1. Chest x-ray without acute cardiopulmonary abnormality. 2. Head CT without intracranial hemorrhage. Subgaleal fluid and gas collection at the vertex just to the right of midline with associated skin clau. 3. Soft tissue neck CT with cellulitis in the left suprahyoid and infrahyoid neck with associated left platysma myositis. Enlarged bilateral tonsils and adenoids potentially representing tonsillitis. No peritonsillar or tonsillar abscesses. No soft tissue abscess. Reactive bilateral cervical lymphadenopathy left greater than right. 4. Blood cultures negative after 2 days 5. Wound culture with Staphylococcus aureus resistant to clindamycin, erythromycin, penicillin as well as beta-hemolytic group strep a - HOSPITAL COURSE Hospital Course: Patient was placed on empiric antibiotic therapy with vancomycin and Zosyn. White cell count was 18.5 and admission was 9.8 by discharge. He had a high temperature of 39.2 his admission. Continued to spike with temperatures on the with T-max 38.6. By the and he was afebrile. By then wound cul tures had returned. I had oral maxillofacial surgery see this gentleman and they took out all the clau, cleaned out the scalp wound, and within 24 hours the edema and cellulitis changes of the left scalp, left face, periorbital edema and left platysmal swelling had resolved. He continued to have some adenopathy at discharge with left greater than right of the anterior cervical chain and supraclavicular fossa. Pain was a pounding headache over the site of laceration. But he states that he had a problem with oxycodone a few years ago and became addicted to it after spine surgery. Patient preferred that we not use opiates and he was on Toradol with good pain control. Patient was switched to Keflex which will cover both the staph and the strep. He is asked to follow-up with oral maxillofacial surgery, Dr. Serra, tomorrow. I am also asking him to please establish himself with a primary care provider to get follow-up on his Synthroid. He is on 50 mcg a day and states that he ran out of medication and has not gotten around to getting a new primary care provider or a new prescription. TSH was 8.06 and he will need a new TSH in the next 4 to 6 weeks. Greater than 30 minutes was spent coordinating discharge. - ALLERGIES Allergies/Adverse Reactions: Allergies Allergy/AdvReac Type Severity Reaction Status Date / Time codeine Allergy Hives Verified 10/15/20 09:47 - MEDICATIONS Home Medications: Ambulatory Orders Medication Instructions Recorded Confirmed Levothyroxine [Synthroid] 50 mcg PO QDAC tablet 10/17/20 Levothyroxine [Synthroid] 50 mcg PO QDAC #60 tablet 10/17/20 cephALEXin [Keflex] 500 mg PO Q6HR #16 cap 10/17/20 - LABS Result Diagrams: 10/17/20 07:32 10/17/20 07:32 - SEPSIS Current Stage of Sepsis: Sepsis Possible source of Sepsis: Skin/soft tissue Sepsis Criteria: Recorded Temperature greater than 38.3C or Less than 36C, Recorded Heart Rate greater than 90 bpm, WBC count greater than 12,000 or less than 4000 - FOLLOW UP Follow Up: David Serra, to be seen tomorrow, patient is to call."
== END 2020-10-17 13:00 | disposition home or self-care (01) | DRG 872 ==
LOC: ED 18:53 → MS2 23:16 → UNDODISIN 10-16 14:15
PROVIDERS: ADMIT Internal Medicine; ATTEND Specialist
DX: A41.01 Sepsis due to Methicillin susceptible Staphylococcus aureus (principal); L03.221 Cellulitis of neck; L03.811 Cellulitis of head [any part, except face]; Z16.11 Resistance to penicillins; Z16.24 Resistance to multiple antibiotics; E87.1 Hypo-osmolality and hyponatremia; S01.00XD Unspecified open wound of scalp, subsequent encounter; V00.848D Other accident with standing micro-mobility pedestrian conveyance, subsequent encounter; H05.222 Edema of left orbit; E03.9 Hypothyroidism, unspecified; Z20.822 Contact with and (suspected) exposure to COVID-19; Z87.891 Personal history of nicotine dependence
CPT/HCPCS: 0202U; 36415; 70460; 70491; 71045; 80048; 80053; 83605; 83690; 83735; 84439; 84443; 85025; 86140; 87040; 87070; 87077; 87181; 87205; 96361; 96365; 96366; 96375; 99284; 99285; A9270; J1170; J1650; J2060; J3370

== ENCOUNTER 2020-11-20 15:22 | Emergency (ER) | payer MEDICAID ==
[2020-11-20 15:30] VITALS: BP 136/94
[2020-11-20] MEDS ORDERED: LIDOCAINE 1%-EPI 1:100000 20 ML MDV SUBQ STA (15:37)
[2020-11-20] MEDS ORDERED: BUFFERED LIDOCAINE 10 ML SYRINGE SUBQ STA (15:37)
--- NOTE | 2020-11-20 15:38 | ED Physician Documentation ---
PD HPI UPPER EXT INJURY - Stated complaint Stated Complaint: LT FINGER SWELL - Chief complaint Chief Complaint: Ext Problem - History obtained from History obtained from: Patient - Additonal information Additional information: About 10 days ago developed pain and swelling of the left fourth finger. He cut the nail and a bunch of pus was drained and he had relief, but subsequently the pressure has developed again. He also notes about a 3-day history of an abscess on the right buttock. No fevers. Review of Systems Constitutional: reports: Reviewed and negative Eyes: reports: Reviewed and negative Ears: reports: Reviewed and negative Nose: reports: Reviewed and negative Throat: reports: Reviewed and negative Cardiac: reports: Reviewed and negative PD PAST MEDICAL HISTORY - Past Medical History Cardiovascular: Hypertension Respiratory: None Neuro: None Endocrine/Autoimmune: None GI: None : Other Psych: None Musculoskeletal: Chronic back pain (with prior back surgery) Derm: None - Past Surgical History Past Surgical History: Yes Cardiovascular: Vascular surgery HEENT: Tracheostomy - Present Medications Home Medications: Ambulatory Orders Medication Instructions Recorded Confirmed Levothyroxine [Synthroid] 50 mcg PO QDAC #60 tablet 10/17/20 11/20/20 Sulfamethox/Trimeth 800/160 1 each PO BID #14 tablet 11/20/20 [Bactrim Ds 800/160] cephALEXin [Keflex] 500 mg PO Q6H #28 cap 11/20/20 - Allergies Allergies/Adverse Reactions: Allergies Allergy/AdvReac Type Severity Reaction Status Date / Time codeine Allergy Hives Verified 11/20/20 15:25 - Social History Does the pt smoke?: No Smoking Status: Former smoker - Immunizations Immunizations are current?: Yes PD ED PE NORMAL - Vitals Vital signs reviewed: Yes - General General: Alert and oriented X 3, No acute distress - Back Back: Other (There is a large pointed abscess on the right buttock with moderate surrounding cellulitis. No active drainage.) - Extremities Extremities: Other (He has either a circumferential paronychia or felon of the left fourth finger with significant tenderness.) - Neuro Neuro: Alert and oriented X 3, Normal speech Results - Vitals Vitals: Vital Signs - 24 hr 11/20/20 15:26 Temperature 36.8 C Heart Rate 88 Respiratory 18 Rate Blood Pressure 136/94 H O2 Saturation 100 Oxygen O2 Source Room air - Labs Labs: Microbiology 11/20/20 15:55 Wound Culture - Preliminary Abscess Procedures - Abscess I&D (location) Left fourth finger paronychia Preparation: Lidocaine 1% (Digital block with buffered lidocaine with excellent anesthesia) Incision: Other (Initially trephinated a hole in the nail which resulted in no pus, then on the radial side of the finger which the most fluctuant a scalpel was used and copious pus was returned.) Other: Pt tolerated well, Dressing applied, Antibiotic prescribed Right buttock Preparation: Lidocaine 1%, With epi Incision: Incised with scalpel, Purulent drainage, Loculations broken, Culture obtained Other: Pt tolerated well, Dressing applied, Antibiotic prescribed Departure - Departure Disposition: Home, Self Care Clinical Impression: Abscess of right buttock, Paronychia of finger Condition: Good Record reviewed to determine appropriate education?: Yes Instructions: ED Abscess IandD Prescriptions: Sulfamethox/Trimeth 800/160 [Bactrim Ds 800/160] 1 each PO BID #14 tablet cephALEXin [Keflex] 500 mg PO Q6H #28 cap Comments: We are performing a wound culture, the results should be done in 48-72 hours. If antibiotic change is necessary we will call you. Return if worse in the meantime, especially if you develop increased pain, fevers, cannot keep down the medication. Otherwise follow-up with your physician in approximately 2-3 days. Discharge Date/Time: 11/20/20 16:05
[2020-11-20] MEDS ORDERED: cephALEXin 250 MG CAPSULE PO STA (15:53)
[2020-11-20] MEDS ORDERED: SULFAMETH/TRIMETH DS 800/160 MG TABLET PO STA (15:53)
== END 2020-11-20 16:05 | disposition home or self-care (01) ==
LOC: ED 15:22
DX: L03.012 Cellulitis of left finger (principal); L02.31 Cutaneous abscess of buttock; Z87.891 Personal history of nicotine dependence
CPT/HCPCS: 10061; 87070; 87181; 87205; 99283; A9270

== ENCOUNTER 2021-04-12 02:00 | Emergency (ER) | payer MEDICAID ==
[2021-04-12 02:26] LABS: RAPID STREP SCREEN Negative (Negative)
--- NOTE | 2021-04-12 03:44 | ED Physician Documentation ---
History of Present Illness - Stated complaint Stated Complaint: NOSE REDNESS,FEVER - Chief complaint Chief Complaint: Fever - History obtained from History obtained from: Patient - History of Present Illness Timing: How many days ago (3) Pain level now: 10 Improved by: nothing Worsened by: palpation - Additonal information Additional information: c/o 3 days of nasal redness, swelling, and pain. He says he had a pimple (per patient) on his nose which he squeezed with some purulent d/c; later that same day the symptoms began, which have gradually spread from the area of the lesion to the entire nose. He has h/o cellulitis including facial cellulitis requiring inpatient antibiotics. He has had fever at home, Tmax 101. Review of Systems Constitutional: reports: Fever Nose: reports: Other (nasal erythema, pain, swelling) PD PAST MEDICAL HISTORY - Past Medical History Past Medical History: Yes Cardiovascular: Hypertension Respiratory: None Neuro: None Endocrine/Autoimmune: None GI: None : Other HEENT: None Psych: None Musculoskeletal: Chronic back pain Derm: None - Past Surgical History Past Surgical History: Yes Ortho: Other Cardiovascular: Vascular surgery HEENT: Tracheostomy - Present Medications Home Medications: Ambulatory Orders Medication Instructions Recorded Confirmed Doxycycline Hyclate 100 mg PO BID #20 cap 04/12/21 oxyCODONE [Roxicodone] 5 - 10 mg PO Q4-6H PRN #14 tablet 04/12/21 - Allergies Allergies/Adverse Reactions: Allergies Allergy/AdvReac Type Severity Reaction Status Date / Time codeine Allergy Hives Verified 04/12/21 02:16 - Social History Does the pt smoke?: No Smoking Status: Never smoker Does the pt drink ETOH?: No Does the pt have substance abuse?: Yes Substance Use and Type: Prescription Pills - Immunizations Immunizations are current?: Yes - POLST Patient has POLST: No PD ED PE NORMAL - Vitals Vital signs reviewed: Yes - General General: Alert and oriented X 3, Well developed/nourished, Other (crying, adams ears to be in painful distress) - HEENT HEENT: Pharynx benign, Other (nose is uniformly erythematous and edematous, exqusitiely tender. no fluctuance. there is no other facial swelling, tenderness, erythema) - Neck Neck: Supple, no meningeal sign Results - Vitals Vitals: Vital Signs - 24 hr 04/12/21 04/12/21 04/12/21 02:13 04:16 06:15 Temperature 36.6 C 36.7 C 36.7 C Heart Rate 93 76 72 Respiratory 20 19 18 Rate Blood Pressure 165/93 H 148/99 H 126/79 O2 Saturation 97 98 97 Oxygen O2 Source Room air - Labs Labs: Microbiology 04/12/21 02:10 Group A Strep Throat Culture - Preliminary Throat CULTURE IN PROGRESS. RESULTS TO FOLLOW. Laboratory Tests 04/12/21 02:10 Group A Strep Rapid Negative PD MEDICAL DECISION MAKING - ED course Complexity details: reviewed old records, reviewed results, re-evaluated patient, considered differential, d/w patient ED course: Patient presents after squeezing a pimple on his nose 3 days ago with subsequent swelling, erythema, and pain of the nose. H+P c/w facial cellulitis. He is given IM toradol and IM dilaudid for pain, IM rocephin for cellulitis. On reevaluation he is awake, alert, and smiling , reports excellent pain relief. R for doxycycline, oxycodone electronically submitted to his pharmacy. Return precautions discussed with patient. I am prescribing a short course of short-acting opioid pain medication for this patient. I have reviewed the patients [employer]ACTITIONER and no concerning findings were noted. I have discussed that the opioids are for short term therapy only, and will not be refilled from the ED Departure - Departure Disposition: 01 Home, Self Care Clinical Impression: Facial cellulitis Condition: Good Instructions: ED Cellulitis Facial Prescriptions: Doxycycline Hyclate 100 mg PO BID #20 cap oxyCODONE [Roxicodone] 5 - 10 mg PO Q4-6H PRN #14 tablet PRN Reason: Pain Comments: Prescriptions for oxycodone (for pain) and doxycycline (antibiotic) have been electronically submitted to [facility] in [place]. I am prescribing a short course of narcotic pain medication for you. These are potentially dangerous and addictive medications that should be used carefully. These medications may constipate you. Take an ffdx-azl-mhqurqa stool softener (docusate) twice daily with plenty of water while taking these medications. If you go 24 hours without a bowel movement, take orxb-kvi-[id number] miralax, per package instructions. Do not drink or drive while taking these medications. If you received narcotic or sedating medications while in the emergency department, do not drive for 24 hours. Store this medication in a safe, secure place and out of reach of children. It is a violation of federal law to give or sell this medication to another person or to use in a manner other than prescribed. The ED will not refill narcotic prescriptions, including prescriptions lost or stolen. To dispose of unwanted medications: 1. [facility] [address] [facility] in [place] has a medication drop box. They accept prescription medications (in pill form) Sunday through Sunday 9:00 a.m. to 5:00 p.m. 2. [facility] accepts prescription medications (in pill form only) for disposal year round. Call for more information. 3. Contact the [facility] for the next [facility] sponsored prescription drug collection event. , [phone], or [phone]; Discharge Date/Time: 04/12/21 06:15
[2021-04-12] MEDS ORDERED: KETOROLAC 60 MG/2 ML VIAL IM STA (03:58)
[2021-04-12] MEDS ORDERED: cefTRIAXone 1 GM VIAL IM STA (03:59)
[2021-04-12] MEDS ORDERED: HYDROmorphone 1 MG/ML CARPUJECT IM STA (03:59)
[2021-04-12 06:16] VITALS: BP 126/79
== END 2021-04-12 06:15 | disposition home or self-care (01) ==
LOC: ED 02:00
DX: J34.0 Abscess, furuncle and carbuncle of nose (principal); I10 Essential (primary) hypertension
CPT/HCPCS: 87070; 87430; 96372; 99282; 99283; J1170